=== PATIENT | male | born 1975 | race Caucasian/White ===

== ENCOUNTER 2020-03-16 17:28 | Emergency (ER) | payer OTHER ==
[~2020-03-16] VITALS: Ht 177.8 cm; Wt 79.4 kg
== END 2020-03-16 19:28 | disposition home or self-care (01) ==
LOC: ER 17:28
DX: S80.02XA Contusion of left knee, initial encounter (principal); W22.8XXA Striking against or struck by other objects, initial encounter; Y93.89 Activity, other specified; Y92.89 Other specified places as the place of occurrence of the external cause; Y99.8 Other external cause status